=== PATIENT | female | born 1985 | race Caucasian/White ===

== ENCOUNTER 2018-05-21 10:11 | Observation (INO) | payer MEDICAID ==
[2018-05-21 11:18] LABS: PLATELET COUNT 233 10^3/uL (150-400)
--- NOTE | 2018-05-21 12:02 | EDPHY ---
General Time Seen by Provider: 05/21/18 11:58 Narrative: CHIEF COMPLAINT: Abdominal pain, fever, nausea, dizzy HISTORY OF PRESENT ILLNESS: Patient presents private vehicle with complaints of the above symptoms started abruptly at 3:40 a.m.. They have been constant duration. There was chest pain 1st that has resolved spontaneously. She no longer has any chest pain but has remained symptoms. The rated as severe. Worse with any kind of palpation movement. No radiating complaints. No actual vomiting. She also describes some body aches and malaise. She has had these symptoms several times in the past with no definitive diagnosis. She has had extensive workups. No pelvic pain. No vaginal bleeding or discharge. REVIEW OF SYSTEMS: 10 systems were reviewed and negative with the exception of the elements mentioned in the history of present illness. PCP: None currently SPECIALISTS: None PAST MEDICAL HISTORY: Spontaneous miscarriage, abdominal pain PAST SURGICAL HISTORY: E sure placement SOCIAL HISTORY: Daily smoker. Lives independently with her spouse. FAMILY HISTORY: Noncontributory EXAMINATION: Vitals: Triage VS reviewed General Appearance: Alert, no distress. Uncomfortable but nontoxic. Head: normocephalic, atraumatic Eyes: Pupils equal and round, no conjunctival pallor or injection ENT, Mouth: Mucous membranes moist Neck: Normal inspection, supple, non-tender Respiratory: Lungs are clear to auscultation Cardiovascular: Regular rate and rhythm. No murmur Gastrointestinal: Abdomen is soft and nondistended. There is tenderness in the epigastrium and umbilicus. No point tenderness of the right lower quadrant. No guarding. No tympany rigidity. No CVA tenderness. Bowel sounds are present. No palpable mass. Neurological: A&O, nonfocal, normal gait Skin: Warm and dry, no rash Extremities: Nontender, no pedal edema Psychiatric: Mood and affect normal DIFFERENTIAL DIAGNOSES: Including but not limited to gastritis, peptic ulcer, colitis, pancreatitis, cholecystitis, cholelithiasis, endometriosis, appendicitis, mesenteric adenitis , ACS, PE MDM: 11:50 a.m. Epigastric and periumbilical abdominal pain the 12 hr. She was having chest pain earlier but this has resolved. She is perc negative. She has history of this with no definitive diagnosis with multiple imaging in the past. She also has some malaise, fever, nausea and dizziness over the past 12 hr. She is awake alert. She does appear to be in discomfort but does not meet SIRS criteria. Laboratory studies are pending. I have ordered EKG, troponin, symptomatic medications. She is in no acute distress. 1:00 p.m. Laboratory studies are within normal limits. Flu test pending. 1:40 p.m. Patient re-evaluated. Her pain is returning. Her flu test is negative. We discussed further pain medication. At this point I do feel she warrants a CT scan as she has moderate tenderness of the umbilicus. She remains afebrile in no acute distress. No chest pain or shortness of breath at this time. 2:50 p.m. Notified by radiologist Dr. Pérez. CT scan abdomen is reveals no obvious source of pain. There may be a mild enteritis. Patient has been re-evaluated. Her pain persist despite multiple medications. At this point I do not feel she is stable for discharge home as she remains tachycardic. She has consented to admission to the hospital. 3:05 p.m. Case discussed with hospitalist Dr. Reggie Loaiza. She will admit the patient to her service. She is admitted to her service in stable condition, observation status. 3:50 p.m. Patient has been evaluated by hospitalist Dr. Reggie Loaiza. SUPERVISION: Patient was independently examined, but I discussed the case with my secondary supervising physician Dr. Tomas EKG interpretation: Dr. Tomas. Sinus rhythm without ischemia conduction delay. CONSULTATION: Hospitalist admission - Diagnostics Imaging Results: Imaging Impressions Chest X-Ray 05/21/18 12:18 Impression: Normal AP chest x-ray. Abdomen CT 05/21/18 13:41 Impression: 1. No definite etiology for the patient's pain. 2. Additional findings as above. Findings discussed with Scott Ramirez PA-C on May 21, 2018 at 1443 hours. Imaging: Discussed imaging studies w/ conveyor line bakery worker Radiologist, I viewed and interpreted images myself - History History Review: I reviewed the patient's medical records, I obtained additional history from the patient's family Smoking Status: Heavy smoker - Objective Vital Signs: Initial Vital Signs Temperature (C) 97.5 F 05/21/18 10:20 Heart Rate 116 H 05/21/18 10:20 Respiratory Rate 18 05/21/18 10:20 Blood Pressure 143/92 H 05/21/18 10:20 O2 Sat (%) 99 05/21/18 10:20 O2 Delivery Mode Room Air Allergies/Adverse Reactions: No Known Allergies Allergy (Unverified 05/21/18 10:23) Laboratory Results: Laboratory Results 05/21/18 11:09 05/21/18 11:09 05/21/18 05/21/18 05/21/18 13:32 12:30 11:09 WBC RBC Hgb Hct MCV MCH MCHC RDW Plt Count MPV Neut % (Auto) Lymph % (Auto) [place] % (Auto) Eos % (Auto) Baso % (Auto) Nucleat RBC Rel Count Absolute Neuts (auto) Absolute Lymphs (auto) Absolute Monos (auto) Absolute Eos (auto) Absolute Basos (auto) Absolute Nucleated RBC Immature Gran % Immature Gran # Sodium Potassium Chloride Carbon Dioxide Anion Gap BUN Creatinine Estimated GFR Glucose Calcium POC Troponin I 0.00 ng/mL ng/mL (0.00-0.08) Beta HCG, Qual NEGATIVE Urine Color Urine Appearance Urine pH Ur Specific [place] Urine Protein Urine Ketones Urine Blood Urine Nitrate Urine Bilirubin Urine Urobilinogen Ur Leukocyte Esterase Urine Glucose Nasal Influenza A PCR NEGATIVE FOR FLU A (NEGATIVE) Nasal Influenza B PCR NEGATIVE FOR FLU B (NEGATIVE) 05/21/18 05/21/18 05/21/18 11:09 11:09 10:51 WBC 8.29 10^3/uL 10^3/uL (3.80-9.50) RBC 4.58 10^6/uL 10^6/uL (4.18-5.33) Hgb 14.3 g/dL g/dL (12.6-16.3) Hct 42.7 % % (38.0-47.0) MCV 93.2 fL fL (81.5-99.8) MCH 31.2 pg pg (27.9-34.1) MCHC 33.5 g/dL g/dL (32.4-36.7) RDW 12.4 % % (11.5-15.2) Plt Count 233 10^3/uL 10^3/uL (150-400) MPV 9.3 fL fL (8.7-11.7) Neut % (Auto) 87.4 % H % (39.3-74.2) Lymph % (Auto) 8.2 % L % (15.0-45.0) [place] % (Auto) 3.3 % L % (4.5-13.0) Eos % (Auto) 0.5 % L % (0.6-7.6) Baso % (Auto) 0.2 % L % (0.3-1.7) Nucleat RBC Rel Count 0.0 % % (0.0-0.2) Absolute Neuts (auto) 7.25 10^3/uL H 10^3/uL (1.70-6.50) Absolute Lymphs (auto) 0.68 10^3/uL L 10^3/uL (1.00-3.00) Absolute Monos (auto) 0.27 10^3/uL L 10^3/uL (0.30-0.80) Absolute Eos (auto) 0.04 10^3/uL 10^3/uL (0.03-0.40) Absolute Basos (auto) 0.02 10^3/uL 10^3/uL (0.02-0.10) Absolute Nucleated RBC 0.00 10^3/uL 10^3/uL (0-0.01) Immature Gran % 0.4 % % (0.0-1.1) Immature Gran # 0.03 10^3/uL 10^3/uL (0.00-0.10) Sodium 140 mEq/L mEq/L (135-145) Potassium 3.9 mEq/L mEq/L (3.5-5.2) Chloride 109 mEq/L mEq/L (97-110) Carbon Dioxide 22 mEq/l mEq/l (22-31) Anion Gap 9 mEq/L mEq/L (6-14) BUN 12 mg/dL mg/dL (7-23) Creatinine 0.6 mg/dL mg/dL (0.6-1.0) Estimated GFR > 60 Glucose 87 mg/dL mg/dL (70-100) Calcium 8.9 mg/dL mg/dL (8.5-10.4) POC Troponin I Beta HCG, Qual Urine Color PALE YELLOW Urine Appearance CLEAR Urine pH 5.0 (5.0-7.5) Ur Specific [place] 1.004 (1.002-1.030) Urine Protein NEGATIVE (NEGATIVE) Urine Ketones NEGATIVE (NEGATIVE) Urine Blood NEGATIVE (NEGATIVE) Urine Nitrate NEGATIVE (NEGATIVE) Urine Bilirubin NEGATIVE (NEGATIVE) Urine Urobilinogen NEGATIVE EU EU (0.2-1.0) Ur Leukocyte Esterase NEGATIVE (NEGATIVE) Urine Glucose NEGATIVE (NEGATIVE) Nasal Influenza A PCR Nasal Influenza B PCR Medications Given: Discontinued Medications Famotidine (Pepcid) 20 mg IVP EDNOW ONE Stop: 05/21/18 12:17 Last Admin: 05/21/18 12:25 Dose: 20 mg Hydromorphone HCl (Dilaudid) 1 mg IVP EDNOW ONE Stop: 05/21/18 13:23 Last Admin: 05/21/18 13:51 Dose: 1 mg Hydromorphone HCl (Dilaudid) 1 mg IVP EDNOW ONE Stop: 05/21/18 15:01 Last Admin: 05/21/18 15:19 Dose: 1 mg Sodium Chloride (Ns) 1,000 mls @ 0 mls/hr IV EDNOW ONE; Wide Open PRN Reason: Protocol Stop: 05/21/18 12:17 Last Admin: 05/21/18 12:24 Dose: 1,000 mls Morphine Sulfate (Morphine) 4 mg IVP EDNOW ONE Stop: 05/21/18 12:17 Last Admin: 05/21/18 12:24 Dose: 4 mg Ondansetron HCl (Zofran) 4 mg IVP EDNOW ONE Stop: 05/21/18 12:17 Last Admin: 05/21/18 12:25 Dose: 4 mg Point of Care Test Results: Chemistry 05/21/18 13:32 POC Troponin I 0.00 ng/mL ng/mL (0.00-0.08) Departure - Dep[facility]ure [facility] Clinical Impression: Abdominal pain Qualifiers: Abdominal location: epigastric Qualified Code(s): R10.13 - Epigastric pain Condition: Good
[2018-05-21] MEDS ORDERED: ONDANSETRON 4 MG/2 ML VIAL IVP ONE (12:16)
[2018-05-21] MEDS ORDERED: NS 1,000 ML IV ONE (12:16)
[2018-05-21] MEDS ORDERED: FAMOTIDINE 20 MG/2 ML SDV IVP ONE (12:16)
[2018-05-21] MEDS ORDERED: HYDROmorphONE/DILAUDID 1 MG/ML INJ IVP ONE ×2 (13:22→15:00)
[2018-05-21] MEDS ORDERED: IOPAMIDOL (ISOVUE-300) 100 ML BTL ONE (13:50)
[2018-05-21] MEDS ORDERED: PROMETHAZINE HCL 25 MG/ML INJ IVP PRN (15:39)
[2018-05-21] MEDS ORDERED: oxyCODONE IR 5 MG TAB PO PRN (15:39)
[2018-05-21] MEDS ORDERED: ACETAMINOPHEN 325 MG TAB PO PRN (15:39)
[2018-05-21] MEDS ORDERED: ONDANSETRON 4 MG/2 ML VIAL IVP PRN (15:39)
[2018-05-21] MEDS ORDERED: ONDANSETRON DISINTEGRATING 4 MG TAB PO PRN (15:39)
[2018-05-21] MEDS ORDERED: LORazepam 2 MG/ML INJ IVP PRN (15:39)
--- NOTE | 2018-05-21 16:13 | PDGENHP ---
History and Physical - Chief Complaint abdominal pain - History of Present Illness 32 yo F with no significant PMH presenting with abdominal pain that began early this morning waking her from sleep. She notes the pain is in her middle to upper abdomen and spreads across to both sides. It is severe and seems to come in waves, she states almost like contractions. She has had associated nausea without vomiting and dizzyness. She has felt febrile and diaphoretic. She has not had any diarrhea, she did have a normal BM this morning. She has never had similar sxs in the past. She did suffer a miscarriage years ago and had abdominal pain after that but nothing this severe. She has been able to eat today without issues. History Information - Allergies/Home Medication List Allergies/Adverse Reactions: No Known Allergies Allergy (Unverified 05/21/18 10:23) Home Medications: NK [No Known Home Meds] 05/21/18 [Last Taken Unknown] I have personally reviewed and updated: family history, medical history, social history, surgical history - Past Medical History no pertinent PMH - Surgical History Reports: no pertinent surgical hx - Family History Positive for: non-pertinent - Social History Smoking Status: Heavy smoker Alcohol Use: None Drug Use: None Review of Systems Review of Systems: ROS: 10pt was reviewed & negative except for what was stated in HPI & below Physical Exam Physical Exam: Temp Pulse Resp BP Pulse Ox 37.3 C 98 16 117/62 96 05/21/18 14:30 05/21/18 14:30 05/21/18 14:30 05/21/18 14:30 05/21/18 14:30 Constitutional: no apparent distress, appears nourished Eyes: PERRL Ears, Nose, Mouth, Throat: moist mucous membranes, hearing normal Cardiovascular: regular rate and rhythym, no murmur, rub, or gallop Respiratory: no respiratory distress, no rales or rhonchi Gastrointestinal: normoactive bowel sounds, no palpable masses, No guarding, No rebound Genitourinary: no bladder tenderness Skin: warm, normal color Musculoskeletal: full muscle strength Neurologic: AAOx3 Psychiatric: interacting appropriately, not anxious, not encephalopathic Lab Data & Imaging Review 05/21/18 11:09 05/21/18 11:09 WBC 8.29 10^3/uL (3.80-9.50) 05/21/18 11:09 RBC 4.58 10^6/uL (4.18-5.33) 05/21/18 11:09 Hgb 14.3 g/dL (12.6-16.3) 05/21/18 11:09 Hct 42.7 % (38.0-47.0) 05/21/18 11:09 MCV 93.2 fL (81.5-99.8) 05/21/18 11:09 MCH 31.2 pg (27.9-34.1) 05/21/18 11:09 MCHC 33.5 g/dL (32.4-36.7) 05/21/18 11:09 RDW 12.4 % (11.5-15.2) 05/21/18 11:09 Plt Count 233 10^3/uL (150-400) 05/21/18 11:09 MPV 9.3 fL (8.7-11.7) 05/21/18 11:09 Neut % (Auto) 87.4 % (39.3-74.2) H 05/21/18 11:09 Lymph % (Auto) 8.2 % (15.0-45.0) L 05/21/18 11:09 [place] % (Auto) 3.3 % (4.5-13.0) L 05/21/18 11:09 Eos % (Auto) 0.5 % (0.6-7.6) L 05/21/18 11:09 Baso % (Auto) 0.2 % (0.3-1.7) L 05/21/18 11:09 Nucleat RBC Rel Count 0.0 % (0.0-0.2) 05/21/18 11:09 Absolute Neuts (auto) 7.25 10^3/uL (1.70-6.50) H 05/21/18 11:09 Absolute Lymphs (auto) 0.68 10^3/uL (1.00-3.00) L 05/21/18 11:09 Absolute Monos (auto) 0.27 10^3/uL (0.30-0.80) L 05/21/18 11:09 Absolute Eos (auto) 0.04 10^3/uL (0.03-0.40) 05/21/18 11:09 Absolute Basos (auto) 0.02 10^3/uL (0.02-0.10) 05/21/18 11:09 Absolute Nucleated RBC 0.00 10^3/uL (0-0.01) 05/21/18 11:09 Immature Gran % 0.4 % (0.0-1.1) 05/21/18 11:09 Immature Gran # 0.03 10^3/uL (0.00-0.10) 05/21/18 11:09 Sodium 140 mEq/L (135-145) 05/21/18 11:09 Potassium 3.9 mEq/L (3.5-5.2) 05/21/18 11:09 Chloride 109 mEq/L (97-110) 05/21/18 11:09 Carbon Dioxide 22 mEq/l (22-31) 05/21/18 11:09 Anion Gap 9 mEq/L (6-14) 05/21/18 11:09 BUN 12 mg/dL (7-23) 05/21/18 11:09 Creatinine 0.6 mg/dL (0.6-1.0) 05/21/18 11:09 Estimated GFR > 60 05/21/18 11:09 Glucose 87 mg/dL (70-100) 05/21/18 11:09 Calcium 8.9 mg/dL (8.5-10.4) 05/21/18 11:09 Total Bilirubin 0.4 mg/dL (0.1-1.4) 05/21/18 Unknown Conjugated Bilirubin 0.2 mg/dL (0.0-0.5) 05/21/18 Unknown Unconjugated Bilirubin 0.2 mg/dL (0.0-1.1) 05/21/18 Unknown AST 24 IU/L (14-46) 05/21/18 Unknown ALT 23 IU/L (9-52) 05/21/18 Unknown Alkaline Phosphatase 93 IU/L (38-126) 05/21/18 Unknown POC Troponin I 0.00 ng/mL (0.00-0.08) 05/21/18 13:32 Total Protein 7.1 g/dL (6.3-8.2) 05/21/18 Unknown Albumin 4.4 g/dL (3.5-5.0) 05/21/18 Unknown Lipase 56 IU/L (23-300) 05/21/18 Unknown Beta HCG, Qual NEGATIVE 05/21/18 11:09 Urine Color PALE YELLOW 05/21/18 10:51 Urine Appearance CLEAR 05/21/18 10:51 Urine pH 5.0 (5.0-7.5) 05/21/18 10:51 Ur Specific [place] 1.004 (1.002-1.030) 05/21/18 10:51 Urine Protein NEGATIVE (NEGATIVE) 05/21/18 10:51 Urine Ketones NEGATIVE (NEGATIVE) 05/21/18 10:51 Urine Blood NEGATIVE (NEGATIVE) 05/21/18 10:51 Urine Nitrate NEGATIVE (NEGATIVE) 05/21/18 10:51 Urine Bilirubin NEGATIVE (NEGATIVE) 05/21/18 10:51 Urine Urobilinogen NEGATIVE EU (0.2-1.0) 05/21/18 10:51 Ur Leukocyte Esterase NEGATIVE (NEGATIVE) 05/21/18 10:51 Urine Glucose NEGATIVE (NEGATIVE) 05/21/18 10:51 Nasal Influenza A PCR NEGATIVE FOR FLU A (NEGATIVE) 05/21/18 12:30 Nasal Influenza B PCR NEGATIVE FOR FLU B (NEGATIVE) 05/21/18 12:30 Visualized and Interpreted Chest x-ray results: Yes Chest X-Ray results: no infiltrate Visualized and Interpreted imaging results: Yes Interpretation: abd CT: normal, no etiology for pain, moderate constipation Visualized and Interpreted EKG results: Yes EKG Interpretation: Positive for: normal sinsus rhythm Assessment & Plan Assessment: Abdominal pain (Acute) 32 yo F with no significant PMH presenting with acute onset abdominal pain with benign work up thus far # abdominal pain: abdominal exam is reassuring, certainly not a surgical abdomen. CT scan negative, labs are wnl including LFTs and lipase. Does have moderate constipation noted on CT, will start bowel protocol. Given associated subjective fevers and nausea, query viral gastroenteritis--will get GI pathogen panel. If patient does not improve with symptomatic management overnight will consider further w/u including potentially GI consultation. # constipation: noted on CT, not severe, bowel protocol as needed # htn: suspect this was due to pain, now resolved, monitoring # observation status Patient new to my care. Old records reviewed and summarized as above. Care plan reviewed with ER doctor as above.
[2018-05-21] MEDS ORDERED: LACTULOSE 20 GM/30 ML UDCUP PO PRN (16:17)
[2018-05-21] MEDS ORDERED: BISACODYL 10 MG SUPP PR PRN (16:17)
[2018-05-21] MEDS ORDERED: MAGNESIUM HYDROXIDE 30 ML UDCUP PO PRN (16:17)
[2018-05-21] MEDS ORDERED: POLYETHYLENE GLYCOL 3350 17 GM PKT PO PRN (16:17)
[2018-05-21] MEDS: HYDROmorphONE/DILAUDID 1 MG/ML INJ IVP PRN (16:55)
[2018-05-21] MEDS: HYDROCODONE/APAP 5/325 TAB PO PRN (18:41)
[2018-05-21] MEDS ORDERED: KETOROLAC 15 MG/1 ML SDV IVP PRN (19:33)
[2018-05-21] MEDS: NS 1,000 ML IV SCH (21:27)
[2018-05-21] MEDS: SENNOSIDES/DOCUSATE SODIUM TAB PO SCH ×2 (21:27→21:28)
[2018-05-22] MEDS: HYDROCODONE/APAP 5/325 TAB PO PRN (07:10)
[2018-05-22] MEDS: NS 1,000 ML IV SCH (07:11)
[2018-05-22] MEDS: SENNOSIDES/DOCUSATE SODIUM TAB PO SCH (09:17)
[2018-05-22] MEDS: HYDROmorphONE/DILAUDID 1 MG/ML INJ IVP PRN (10:16)
[2018-05-22 15:00] VITALS: BP 112/66
--- NOTE | 2018-05-22 16:31 | PDDCSUM ---
Discharge Summary Discharge Summary: DISCHARGE DIAGNOSES: Gastroenteritis Dehydration PROCEDURES: CT scan of abdomen HOSPITAL COURSE SUMMARY: This patient came in with diffuse crampy abdominal pain, and nausea and fever symptoms. She had some low-grade fever here and very mild elevation of white blood cell count but a benign abdominal exam and no emesis. There is no signs of bleeding. CT scan did not show any specific abnormalities when done in the ER. There has been no rash, joint pain, mucosal symptoms, or other extraintestinal symptoms. Blood test for nonspecific. She did not have a bowel movement during her hospital stay so no stool studies were done. The patient was observed here in the hospital. She is felt to be somewhat dehydrated. She was hydrated intravenously which helped her symptoms significantly. Gradually she band feel somewhat better and started eating a regular diet which she tolerated well here today. Vital signs have all been stable. At this point is felt the patient is stable for discharge to home. PENDING TEST RESULTS: None MEDICATION CHANGES: Zofran is ordered for p.r.n. For nausea FOLLOW-UP PLAN: With primary care physician as needed Greater than 35 minutes bedside and care coordination time today
--- NOTE | 2018-05-22 18:12 | ASMTLACE ---
ASTER Length of stay for Answers: 1 day current admission Acuity / Level of Answers: No Care: Did the patient have an inpatient admission? # of Emergency department Answers: 1-2 visits in the last 6 months Score: 2 Date Signed: 05/22/2018 06:11 PM Electronically Signed By:Criselda Lopez RN
--- NOTE | 2018-05-22 18:16 | ASDISCHSUM ---
Discharge Information Plan Status:Home with No Needs Medically Cleared to Leave:05/21/2018 Discharge Date:05/22/2018 03:18 PM CM D/C Disposition:Home, Routine, Self-Care ADT D/C Disposition:Home, Routine, Self-Care Projected Discharge Date:05/22/2018 03:18 PM Transportation at D/C:Family Discharge Delay Reason: Follow-Up Date:05/22/2018 03:18 PM Discharge Slot:2 - 12:01 pm - 18:00 pm Final Diagnosis:Gastroenteritis, severe abdominal pain Placement Information Patient Contact Information Contact Name:ARLIN Relationship: Address:[address] Work Phone: [facility] Phone: [facility]/Zip Code:[place] [address] Email: Financial Information Financial Class:Medicaid Primary Plan Desc:MEDICAID [facility] [employer] Primary Plan Number:[id number] Secondary Plan Desc: Secondary Plan Number: Assessment Information LACE LACE Length of stay for Answers: 1 day current admission Acuity / Level of Answers: No Care: Did the patient have an inpatient admission? # of Emergency department Answers: 1-2 visits in the last 6 months Score: 2 Date Signed: 05/22/2018 06:11 PM Electronically Signed By:Criselda Lopez RN [facility] CM Progress Note CM Note CM Note Notes: Reviewed chart. Pt admitted for severe abdominal pain. History is unremarkable. Per unit rounds, pt likely has a gastroenteritis. Pt to discharge home independently today with no identified needs. No IM/MCCARTHY signed, not applicable. Pt to follow up as directed. CM available for any further issues or concerns. Discharge Plan: Home Independently Date Signed: 05/22/2018 06:14 PM Electronically Signed By:Criselda Lopez RN Intervention Information
--- NOTE | 2018-05-23 09:17 | CPEKG ---
Test Reason : OPEN Blood Pressure : / mmHG Vent. Rate : 087 BPM Atrial Rate : 087 BPM P-R Int : 126 ms QRS Dur : 093 ms QT Int : 366 ms P-R-T Axes : -01 004 -01 degrees QTc Int : 441 ms Sinus rhythm Borderline T abnormalities, inferior leads Confirmed by Maikol Santamaria ([id number]) on 05/23/2018 9:16:42 AM Referred By: Confirmed By:Maikol Santamaria
== END 2018-05-22 15:18 | disposition home or self-care (01) ==
LOC: F2W 16:30
PROVIDERS: ADMIT Internal Medicine; ATTEND Internal Medicine
DX: K52.9 Noninfective gastroenteritis and colitis, unspecified (principal); R10.13 Epigastric pain; E86.0 Dehydration; R03.0 Elevated blood-pressure reading, without diagnosis of hypertension; K59.00 Constipation, unspecified; F17.200 Nicotine dependence, unspecified, uncomplicated
CPT/HCPCS: 71045; 74177; 93005; 96361; 96374; 96375; 96376; 99285; G0378; 84484-PO; J1170; J1885; J2270; J2405; J2550; Q9967